=== PATIENT | male | born 1965 | race Caucasian/White ===

== ENCOUNTER → 2019-08-24 10:52 | Outpatient (BNVA) | payer OTHER, SELFPAY | PROVIDERS: Family Provider Nurse Practitioner Family; PCP Nurse Practitioner Family; Visit Provider Registered Nurse | DX: E11.9 Type 2 diabetes mellitus without complications (principal) | CPT/HCPCS: 80053; 83036; 85025 ==

== ENCOUNTER 2019-12-24 19:06 | Emergency (ER) | payer BC, SELFPAY ==
[2019-12-24 19:12] VITALS: PULSE 109; RESP 20; TEMP 36.8; O2SAT 96; BMI 39.5
--- NOTE | 2019-12-24 19:18 | CTR_ITS ---
PROCEDURE INFORMATION: Exam: CT Abdomen And Pelvis With Contrast Exam date and time: 12/24/2019 8:26 PM Age: 54 years old Clinical indication: Abdominal pain; Localized; Left lower quadrant (llq); Patient HX: HX diverticulitis; Additional info: Abdominal pain, fever TECHNIQUE: Imaging protocol: Computed tomography of the abdomen and pelvis with intravenous contrast. Radiation optimization: All CT scans at this facility use at least one of these dose optimization techniques: automated exposure control; mA and/or kV adjustment per patient size (includes targeted exams where dose is matched to clinical indication); or iterative reconstruction. Contrast material: OMNI 300; Contrast volume: 95 ml; Contrast route: INTRAVENOUS (IV); COMPARISON: CT abdomen pelvis w con* [id number] 09/15/2014 3:15 AM RADIATION DOSE METRICS: Total DLP (mGy-cm): 1838.72 FINDINGS: Lungs: There is subpleural atelectasis of the dependent portions of the lungs. Unchanged 5 mm ground-glass nodule right middle lobe image 2. This has been stable dating back to 2014. Mediastinal space: A small hiatal hernia is present. Liver: There is a diffuse decrease in hepatic parenchymal density, consistent with fatty infiltration. Multiple liver hypodensities are noted. Some are too small to characterize but there is a 1.5 cm fluid density cyst in the right lobe of the liver image 26. Gallbladder and bile ducts: There is a small amount of sludge in the gallbladder. No cholecystitis. There is no common bile duct dilation. Pancreas: Normal. No ductal dilation. Spleen: Normal. No splenomegaly. Adrenals: Normal. No mass. Kidneys and ureters: There is no evidence of hydronephrosis. There is no evidence of renal calcifications. Stomach and bowel: Extensive diverticulosis is present in the distal colon. There is a segment of sigmoid colonic wall thickening consistent with moderate acute colitis/diverticulitis. As an underlying colonic malignancy cannot be excluded, a follow-up examination after a course of treatment is recommended if clinically warranted. There is sigmoid pericolonic inflammatory stranding. No additional bowel thickening or inflammatory changes. Appendix: A normal appendix is identified. Intraperitoneal space: No abscess or free air. Vasculature: Unremarkable.No abdominal aortic aneurysm. Lymph nodes: Unremarkable.No enlarged lymph nodes. Bladder: There is nonspecific bladder wall thickening. This may be related to incomplete distention. Reproductive: The prostate demonstrates mild nonspecific enlargement. The seminal vesicles are normal. Bones/joints: There are moderate to severe degenerative changes in the lower lumbar spine and hips. No acute bony abnormality. Soft tissues: There are small bilateral fat filled inguinal hernias. CT/CT abdomen pelvis w con* [id number] IMPRESSION: 1. There is a segment of sigmoid colonic wall thickening consistent with moderate acute colitis/diverticulitis. As an underlying colonic malignancy cannot be excluded, a follow-up examination after a course of treatment is recommended if clinically warranted. No abscess or free air. 2. Mild fatty infiltration liver with liver cysts. Diffuse diverticulosis. 3. Unchanged 5 mm ground-glass nodule right middle lobe dating back to August 2014. No follow-up is necessary. Radiation Dose CTDIVOL = (mGy): DLP = 1838.72 (mGy-cm)
--- NOTE | 2019-12-24 19:41 | ED_ITS ---
HPI - Abdominal Pain General: Chief Complaint: Abdominal Pain Stated Complaint: abd pain Time Seen by Provider: 12/24/19 19:14 History of Present Illness: HPI narrative: This patient is a 54-year-old male presenting with left lower quadrant abdominal pain. Pain started this morning and has been gradually increasing throughout the day. He is in obvious distress on exam. He said he had diverticulitis in the past and this feels similar. He says the pain is somewhat radiating to his left testicle. He denies any urinary symptoms. He also denies constipation, diarrhea, nausea, vomiting. He took some Advil early in the morning but has not taken anything else since then. He denies any abdominal surgeries. His last bout of diverticulitis was several years ago. MD elicited complaint: abdominal pain Pertinent past history: diverticulitis Onset (ago): hour(s) (12) Pain Consistency: constant Location: LLQ and L flank Severity: severe Quality: cramping, aching and fullness Radiation: other (Left testicle) Associated Symptoms: Denies chills and fever(s) Review of Systems General: Reports: 10 or more systems reviewed and unremarkable except in HPI and below Const: Denies: fever(s), chills, fatigue or malaise Eyes: Denies: change in vision ENMT: Denies: odynophagia Card: Denies: chest pain or swelling of feet/ankles Resp: Denies: dyspnea, productive cough or non-productive cough GI: Reports: abdominal pain : Denies: flank pain Musc: Denies: neck pain or back pain Skin/Breast: Denies: rash Neuro: Denies: headache(s), numbness in extremities or weakness in extremities Helio/Lymph: Denies: easy bruising or easy bleeding [facility] ED PFSH: Medical History Type 2 diabetes mellitus with hemoglobin A1c goal of less than 7.0% Social History Smoking and tobacco status: former smoker Physical Exam Const: COMMON NORMALS: patient oriented x3, no limitations and alert GENERAL APPEARANCE: cooperative and in distress HENMT: HEAD & SCALP: normal to inspection FACE & SINUS: normal facial exam Eye: GENERAL EYE: appearance normal, both eyes and all related structures Neck/C-Spine: COMMON NORMALS: supple, no meningeal signs and no JVD Chest: COMMONS NORMALS: normal inspection of the chest Resp: COMMON NORMALS: normal respiratory effort, No use of accessory muscles and clear to auscultation bilaterally AUSCULTATION: clear to auscultation bilaterally Cardio: COMMON NORMALS: no JVD, regular rate, regular rhythm and No murmurs present (Cardio) RATE: regular rate RHYTHM: regular rhythm GI: AUSCULTATION: Yes Hypoactive bowel sounds present PALPATION: Yes Firmness to palpation present (GI) and Yes Tenderness to palpation present (GI) (Markedly tender diffusely, worst in the left lower quadrant with some guarding.) Back/Pelvis: COMMON NORMALS: thoracic and lumbar spine normal to inspection Extremity: COMMON NORMALS: normal to inspection Neuro: COMMON NORMALS: patient oriented x3, moves all extremities, no focal motor deficits and no sensory deficits noted SENSORIUM/ORIENTATION: Yes alert MENINGEAL SIGNS: Yes no meningeal signs Psych: COMMON NORMALS: mental status grossly normal, cooperative and normal affect Skin: COMMON NORMALS: no rashes or lesions noted and turgor normal GENERAL SKIN EXAM: no rashes or lesions noted and turgor normal Course ED course: Patient with previous history of diverticulitis. His symptoms are consistent with diverticulitis however he does have some radiation to his testicle raising the question of possibly a kidney stone. CT was done to make sure that we are really dealing with diverticulitis as well as to rule out an abscess or perforation. White count was 10.9. Patient felt drastically better after some morphine and Toradol. We discussed options of admission versus going home. I feel like he is okay to go home and he would prefer to do that. We will send him home with Cipro and Flagyl which have also get a give IV here before he leaves. Also send him home with some hydrocodone, Naprosyn for only a few days and some Zofran. We discussed return precautions and follow-up. Vital Signs: Vital signs: Vital Signs Temperature 99.1 F 12/24/19 21:07 Pulse Rate 82 12/24/19 21:07 Respiratory Rate 18 12/24/19 21:07 Blood Pressure 124/63 12/24/19 21:07 Pulse Oximetry 96 12/24/19 19:12 MDM - Abdominal Pain Lab Data: Labs: Lab Results 12/24/19 12/24/19 12/24/19 Range/Units 19:30 19:52 19:52 WBC 10.9 H (4.0-10.0) 10^3/ uL RBC 5.29 (4.1-5.3) 10^6/u L Hgb 14.7 (11.7-16.6) g/dL Hct 46.0 (42.0-52.0) % MCV 87.0 (80-94) fL MCH 27.8 L (28.0-34.0) pg MCHC 32.0 (30.0-36.0) g/dL RDW 13.2 (12.1-15.1) % Plt Count 232 (130-400) 10^3/c mm MPV 9.7 (7.4-10.4) fL Neut % (Auto) 73.3 % Lymph % (Auto) 16.1 % [place] % (Auto) 9.6 % Eos % (Auto) 0.4 % Baso % (Auto) 0.3 % Neut # (Auto) 8.0 H (1.8-7.7) 10^3/u L Lymph # (Auto) 1.8 (0.8-4.8) 10^3/u L [place] # (Auto) 1.0 H (0.2-0.9) 10^3/u L Eos # (Auto) 0.0 (0.0-0.8) 10^3/u L Baso # (Auto) 0.0 (0.0-0.1) 10^3/u L Nucleated RBC % (a uto) 0 % Nucleated RBCs # 0.0 /100WBC Sodium 138 (136-145) mmol/L Potassium 4.3 (3.5-5.1) mmol/L Chloride 102 (98-107) mmol/L Carbon Dioxide 24 (22-29) mmol/L Anion Gap 16.3 (5-19) BUN 17 (6-20) mg/dL Creatinine 0.9 (0.7-1.2) mg/dL GFR Calculation 87.3 L (90-130) mL/min Glucose 148 H (65-115) mg/dL Calculated Osmolal ity 285 (285-295) mOsm/k g Calcium 9.6 (8.5-10.5) mg/dL Total Bilirubin 0.9 (0.15-1.2) mg/dL AST 14 (0-40) U/L ALT 14 (0-41) U/L Alkaline Phosphata se 41 (40-130) IU/L Total Protein 7.6 (6.6-8.7) g/dL Albumin 4.5 (3.5-5.2) g/dL Globulin 3.1 (1.3-4.6) g/dL Urine Color Yellow (Yellow) Urine Appearance Clear (CLEAR) Urine pH 5 (5-7) Ur Specific Gravit y 1.025 (1.005-1.030) Urine Protein Neg (Negative) Urine Glucose (UA) 1+ (Normal) Urine Ketones Negative (Negative) Urine Blood Neg (Negative) Urine Nitrate Negative (Negative) Urine Bilirubin Neg (NEGATIVE) Urine Urobilinogen Neg (Negative) mg/dL Ur Leukocyte Iesha ase Negative (Negative) Discharge Plan Discharge Patient Disposition: Home, Self-Care Clinical Impression: Diverticulitis Condition: Stable Prescriptions: New ciprofloxacin HCl 500 mg tablet 500 mg PO Q8H Qty: 30 RF: 0 metronidazole 500 mg tablet 500 mg PO TID Qty: 30 RF: 0 hydrocodone-acetaminophen 5-325 mg tablet 1 tab PO Q6H PRN (Reason: pain) Qty: 14 RF: 0 naproxen 500 mg tablet 500 mg PO Q12H PRN (Reason: pain) Qty: 7 RF: 0 ondansetron HCl 4 mg tablet 4 mg PO Q6H PRN (Reason: nausea and vomiting) Qty: 10 RF: 0 No Action lisinopril 10 mg tablet 10 mg PO DAILY Qty: 90 RF: 1 metformin 500 mg tablet 500 mg PO BID Qty: 180 RF: 1 rosuvastatin 10 mg tablet 10 mg PO DAILY Qty: 90 RF: 0 fenofibrate 160 mg tablet 160 mg PO DAILY Qty: 90 RF: 1 Advil 200 mg Tablet 200 mg PO Q6H PRN (Reason: Pain) RF: 0 Discharge Orders: Discharge Order (Routine); Ordered 12/24/19 Ordered By: Janette Morales Referrals: Demetrio Langston, [facility] [employer] [Primary Care Provider] - Discharge Diet: Advance as tolerated and Clear Liquid Discharge Activity: Resume usual activity Patient Instructions: Diverticulitis (ED) Activity Restrictions/Additional Instructions: Return to the emergency department if increasing pain, fever, vomiting. Take the antibiotics exactly as prescribed. Use the pain medication as needed. We suggest taking it fairly regularly for the next 1 to 2 days or until symptoms start to improve. Pain medication can cause constipation so consider a stool softener. Follow-up with your doctor in about a week. Coding Level of Care Code ED Microbiological Lab Technician for [facility] Exam Comprehensive
[2019-12-24 19:56] VITALS: RESP 18
[2019-12-24] MEDS: morphine 4 mg/mL SDV 1 mL IVP (19:56)
[2019-12-24] MEDS: ondansetron 2 mg/ML SDV 2 mL 4 MG IVP (19:59)
[2019-12-24] MEDS: ketorolac 30 mg/mL INJ 15 MG IVP (20:03)
[2019-12-24 20:05] LABS: Add Urine Microscopic? NO
[2019-12-24 20:06] LABS: Basophils % 0.3 %; Eosinophils % 0.4 %; Hemoglobin 14.7 g/dL (11.7-16.6); Lymphocytes # 1.8 10^3/uL (0.8-4.8); Lymphocytes % 16.1 %; Mean Corpuscular Hemoglobin 27.8 pg (28.0-34.0); Mean Platelet Volume 9.7 fL (7.4-10.4); Monocytes % 9.6 %; Neutrophils % 73.3 %; Nucleated Red Blood Cells % 0 %; Platelet Count 232 10^3/cmm (130-400); Red Blood Count 5.29 10^6/uL (4.1-5.3); Red Cell Distribution Width 13.2 % (12.1-15.1); White Blood Count 10.9 10^3/uL (4.0-10.0)
[2019-12-24 20:17] LABS: Bilirubin Urine Neg (NEGATIVE); Blood Urine Neg (Negative); Glucose Urine UA 1+ (Normal); Ketones Urine Negative (Negative); Leukocyte Esterase Urine Negative (Negative); Nitrate Urine Negative (Negative); Protein Urine Neg (Negative); Specific Gravity, Urine 1.025 (1.005-1.030); Urine Appearance Clear (CLEAR); Urine Color Yellow (Yellow); Urobilinogen Urine Neg (Negative); pH Urine 5 (5-7)
[2019-12-24 20:21] LABS: Alanine Aminotransferase 14 U/L (0-41); Albumin Level 4.5 g/dL (3.5-5.2); Alkaline Phosphatase 41 IU/L (40-130); Anion Gap 16.3 (5-19); Aspartate Amino Transferase 14 U/L (0-40); Blood Urea Nitrogen 17 mg/dL (6-20); Calcium 9.6 mg/dL (8.5-10.5); Carbon Dioxide 24 mmol/L (22-29); Chloride 102 mmol/L (98-107); Globulin 3.1 g/dL (1.3-4.6); Glomerular Filtration Rate 87.3 mL/min (90-130); Glucose 148 mg/dL (65-115); Osmolality Calculated 285 mOsm/kg (285-295); Potassium 4.3 mmol/L (3.5-5.1); Sodium 138 mmol/L (136-145); Total Bilirubin 0.9 mg/dL (0.15-1.2); Total Protein 7.6 g/dL (6.6-8.7)
[2019-12-24] MEDS: iohexol 300 mg/mL 100 mL Btl IV (20:34)
[2019-12-24 21:07] VITALS: BP 124/63; PULSE 82; RESP 18; TEMP 37.3
[2019-12-24] MEDS: ciprofloxacin 400 MG/200 ML PREMIX 200 MG IV (21:24)
[2019-12-24] MEDS: HYDROcodone-acetaminophen 5-325 mg Tablet 2 TAB PO (22:11)
[2019-12-24] MEDS: metroNIDAZOLE IV 500 MG/100 ML PREMIX 100 MG IV (22:33)
[2019-12-24 23:50] VITALS: BP 125/81; PULSE 82; RESP 18; TEMP 36.2
== END 2019-12-24 23:56 | disposition home or self-care (01) ==
PROVIDERS: Emergency Provider Emergency Medicine; PCP Registered Nurse
DX: K57.92 Diverticulitis of intestine, part unspecified, without perforation or abscess without bleeding (principal); E11.9 Type 2 diabetes mellitus without complications; Z87.891 Personal history of nicotine dependence
CPT/HCPCS: 12345; 36415; 74177; 80053; 81003; 85025; 96365; 96375; 99283; J0744; J1885; J2270; J2405; Q9967; S0030

== ENCOUNTER → 2020-10-28 11:22 | Outpatient (BNVA) | payer OTHER, SELFPAY | PROVIDERS: PCP Registered Nurse; Visit Provider Registered Nurse | DX: E11.9 Type 2 diabetes mellitus without complications (principal); I10 Essential (primary) hypertension; E78.5 Hyperlipidemia, unspecified; E11.69 Type 2 diabetes mellitus with other specified complication; E66.01 Morbid (severe) obesity due to excess calories; Z68.41 Body mass index [BMI] 40.0-44.9, adult | CPT/HCPCS: 80053; 80061; 83036; 85025 ==

== ENCOUNTER → 2020-12-18 10:03 | Outpatient (BNVA) | payer OTHER, SELFPAY | PROVIDERS: PCP Registered Nurse; Referring Provider Family Medicine; Visit Provider Urology | DX: N48.1 Balanitis (principal); N47.1 Phimosis; E66.01 Morbid (severe) obesity due to excess calories; E11.9 Type 2 diabetes mellitus without complications; Z68.41 Body mass index [BMI] 40.0-44.9, adult | CPT/HCPCS: 81003 ==

== ENCOUNTER → 2021-02-27 11:27 | Outpatient (BNVA) | payer OTHER, SELFPAY | PROVIDERS: PCP Registered Nurse; Visit Provider Registered Nurse | DX: E11.69 Type 2 diabetes mellitus with other specified complication (principal); E78.5 Hyperlipidemia, unspecified; E66.01 Morbid (severe) obesity due to excess calories; Z68.41 Body mass index [BMI] 40.0-44.9, adult | CPT/HCPCS: 80053; 83036 ==

== ENCOUNTER → 2021-03-13 12:57 | Outpatient (BNVA) | payer OTHER, SELFPAY | PROVIDERS: PCP Registered Nurse; Visit Provider Urology | DX: N47.1 Phimosis (principal) | CPT/HCPCS: 88304 ==

== ENCOUNTER 2021-06-12 08:05 | Outpatient (CLI) | payer OTHER, SELFPAY ==
--- NOTE | 2021-06-12 08:00 | MR_ITS ---
WS: [id number] MRI LEFT KNEE HISTORY: M25.562 - Pain in left knee COMPARISON: None available. Anterior cruciate ligament: Abnormal ACL. Multifocal areas of abnormal signal and thinning of the lig ament. There are still some fibers that extends along the normal course of the ACL but partial tears are evident along the proximal and distal ligament. Posterior cruciate ligament: Intact. Medial collateral ligament: MCL is being displaced from the joint line by osteophytes and extruded me niscus. Posterior lateral corner structures: Intact. Medial menisci: Abnormal shape and signal within the posterior meniscus. Complex tear with blunting a nd loss of the free edge. Intrasubstance degeneration within the meniscal root. The anterior horn dem onstrates subluxation from the joint with abnormal free edge. Lateral meniscus: Fraying along the articular surfaces but no tears. Extensor mechanism: Distal quadriceps tendon and patellar tendons are intact. Fluid and soft tissue: Moderate-sized suprapatellar joint effusion. Fluid extends into the infrapatel lar fat pad and surrounds the condyles. Moderate-sized lobulated Hidalgo's cyst. Cyst extends over a le ngth of 6.8 cm. Osseous and articular structures: Patellofemoral compartment: Hypertrophic osteophytes from the medial and lateral patella. The cartila ge is intact. No displacement. Medial compartment: Moderate narrowing of the medial compartment with complete loss of cartilage. Cor tical irregularity along the surfaces of the femoral condyle and tibial plateau with osteophytes exte nding towards the MCL. Subchondral cystic changes and edema along the nonweightbearing surface manager sterile iorly of the femoral condyle. Lateral compartment: Mild narrowing of the lateral compartment. Moderate fraying and loss of cartilag e but to a lesser extent within the medial compartment. No fracture. MR/MR knee LT wo con* [id number] IMPRESSION: 1. Moderate to severe medial compartment internal derangement with loss of car tilage, near bone upon bone, osteophytes and meniscal tears /extrusion. 2. Complex tear in the posterior medial meniscus. Additional tears involving t he free edges of the anterior and posterior horns of the medial meniscus with p artial extrusion of the meniscus from the joint. 3. Thinned ACL with partial tears. 4. Moderate-sized joint effusion and Hidalgo's cyst. 5. Mild internal derangement lateral compartment with fraying and thinning of the cartilage.
== END 2021-06-12 08:06 | disposition home or self-care (01) ==
LOC: RADSHAW 08:11
PROVIDERS: PCP Registered Nurse; Visit Provider Registered Nurse
DX: M25.462 Effusion, left knee (principal); M71.22 Synovial cyst of popliteal space [Baker], left knee; M23.92 Unspecified internal derangement of left knee; S83.232A Complex tear of medial meniscus, current injury, left knee, initial encounter; X58.XXXA Exposure to other specified factors, initial encounter
CPT/HCPCS: 73721

== ENCOUNTER → 2021-10-09 09:34 | Outpatient (BNVA) | payer OTHER, SELFPAY | PROVIDERS: PCP Registered Nurse; Visit Provider Registered Nurse | DX: E11.9 Type 2 diabetes mellitus without complications (principal); Z12.5 Encounter for screening for malignant neoplasm of prostate | CPT/HCPCS: 80053; 80061; 83036; 85025; G0103 ==

== ENCOUNTER → 2022-04-02 10:44 | Outpatient (BNVA) | payer OTHER, SELFPAY | PROVIDERS: PCP Registered Nurse; Visit Provider Registered Nurse | DX: E11.69 Type 2 diabetes mellitus with other specified complication (principal); E78.5 Hyperlipidemia, unspecified; I10 Essential (primary) hypertension | CPT/HCPCS: 80053; 83036 ==

== ENCOUNTER → 2022-11-09 09:08 | Outpatient (BNVA) | payer OTHER, SELFPAY | PROVIDERS: PCP Registered Nurse; Visit Provider Registered Nurse | DX: E11.9 Type 2 diabetes mellitus without complications (principal); I10 Essential (primary) hypertension; E78.5 Hyperlipidemia, unspecified | CPT/HCPCS: 80053; 80061; 83036; 83721; 85025 ==

== ENCOUNTER 2023-01-13 09:14 | Inpatient (IN) | payer OTHER, SELFPAY ==
[2023-01-13] VITALS (7 sets, daily range): BP systolic 114–154; BP diastolic 70–83; PULSE 70–107; RESP 15–18; TEMP 36.7–36.9; O2SAT 93–97
--- NOTE | 2023-01-13 10:00 | CT_ITS ---
WS: [id number] CT ABDOMEN AND PELVIS WITH CONTRAST HISTORY: moderate to severe Periumbilical tenderness TECHNIQUE: Imaging performed of the abdomen and pelvis with IV contrast. Single phase imaging of the abdomen. Coronal and sagittal reformats are submitted. All CT scans at [facility] use at [address] one of these dose optimization techniques: automated exposure control; mA and/or kV adjustment per patient size (includes targeted exams where dose is matched to clinical indication); or iterative re construction. IV CONTRAST: Omnipaque 350; 100 mL IV. Oral contrast: No DLP: 1083.15 mGy.cm COMPARISON: 12/24/2019 Lower thorax: Dependent changes at the lung bases due to poor inspiration. Heart is normal size. Smal l hiatal hernia. Liver/biliary system: Mild hepatic steatosis and hepatomegaly. Several small hepatic cysts are identi fied within the RIGHT lobe. The largest measures 13 mm. No bile duct dilatation. Normal portal vein. Gallbladder: Normal. No gallstones or wall thickening. No pericholecystic fluid. Pancreas: Moderate amount of inflammation surrounding the pancreatic tail. The inflammation extends t o the greater curvature the stomach and along the LEFT paracolic gutter to the descending colon. Spleen: Normal size spleen. No mass or infarct. Adrenal glands: Normal. Right kidney: Normal. Left kidney: Normal. Aorta: Normal. Numerous splenic varicosities are noted within the upper LEFT abdomen. Lymphadenopathy: Numerous small, subcentimeter central mesenteric and celiac axis lymph nodes. These lymph nodes are similar to the prior study from 2019. No significant retroperitoneal adenopathy. Free fluid: Mesenteric edema and stranding along LEFT paracolic gutter fluid. GI tract: Normally distended stomach. No small bowel obstruction. The appendix is normal. Numerous di verticula beginning in the descending colon through the sigmoid. There are focal diverticulum near th e splenic flexure and proximal duodenum. There is inflammation and stranding in this location. There is a diverticulum which is appears inflamed. There is also an area of colonic stricture. The inflamma tion extends to encase the pancreatic tail and fundal portion of the stomach. Moderate sigmoid divert icular burden without inflammation. No free air. Abdominal wall: Fat containing umbilical hernia. Pelvis: No free fluid or adenopathy within the pelvis. Bones: Advanced degenerative disc space narrowing at L4-5. L3 vertebral body hemangioma. Mild degener ative joint space narrowing of the hips. CT/CT abdomen pelvis w con* [id number] IMPRESSION: 1. Acute inflammatory process centered in the LEFT abdomen with involvement of the splenic flexure and proximal descending colon, pancreatic tail and fundus of the stomach. Favor these changes are originating from acute diverticulitis. Focal inflamed diverticula involving the descending colon and also an area of s tricture which will need to be further evaluated for possible underlying neopla sm. Recommend colonoscopy after acute inflammation resolves. There is no absces s. 2. Additional sigmoid diverticulosis without acute diverticulitis. 3. No renal obstruction. 4. Normal appendix.
--- NOTE | 2023-01-13 10:00 | XR_ITS ---
WS: [id number] Exam: XR chest 1V portable [id number] Date/Time of Exam: 01/13/2023 10:00 AM Reason For Exam: epigastric pain No priors. The lungs are clear and fully expanded. Normal cardiomediastinal silhouette. Mild plaque atelectasis in the left base. Spondylosis of the thoracic spine. Moderate DJD of both shoulders. XR/XR chest 1V portable [id number] IMPRESSION: 1. No acute cardiopulmonary finding.
--- NOTE | 2023-01-13 10:00 | ECG_ITS ---
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 Measurements Intervals [place] Rate: 85 P: 61 OR: 167 QRS: 111 QRSD: 106 T: 35 QT: 342 QTc: 408 Interpretive Statements SINUS RHYTHM WITH MARKED RHYTHM IRREGULARITY, POSSIBLE NON-CONDUCTED PAC, SA BLOCK INDETERMINATE AXIS CRITICAL TEST RESULT Compared to ECG 01/13/2023 10:19:14 No significant changes Electronically Signed On 01-13-2023 22:43:49 CDT by Loida Osei M.D. [email or web address]
--- NOTE | 2023-01-13 10:02 | W.ED.ABDPA2 ---
Documented by User: HENRRY Yen 01/13/23 16:44 HPI - Abdominal Pain General: Chief Complaint: Abdominal Pain Stated Complaint: abd pain Time Seen by Provider: 01/13/23 09:28 History of Present Illness: Patient is a 57-year-old male comes to the ED with abdominal pain. Symptoms started at 7 PM last night. Patient says he just finished eating dinner approximately an hour before symptoms started. He was sitting on his couch when pain started. He says the pain was located in his epigastric region and radiates down towards his bellybutton. He rates the pain currently an 8 out of 10. He states the pain feels like somebody is punching him in the stomach. He has never had abdominal pain like this before. Patient tried taking some Tums last night and it did not help. He was unable to sleep due to the pain. He feels like if he burps will help some of his pain. Patient denies being nauseous or diaphoretic upon onset of pain. Denies any chest pain, fevers, nausea/vomiting, bladder or bowel symptoms. Patient has a history of diverticulitis. Associated Symptoms: Denies chills, constipation, diarrhea, dysuria, fever(s), hematochezia, hematuria, nausea and vomiting Review of Systems Const: Denies: fever(s), chills or fatigue Eyes: Denies: change in vision or eye discomfort ENMT: Denies: throat pain, odynophagia, nasal discharge or nasal congestion Card: Denies: chest pain, palpitations, edema, swelling of feet/ankles, dyspnea on exertion or orthopnea Resp: Denies: dyspnea, productive cough or non-productive cough GI: Reports: abdominal pain; Denies: nausea, vomiting, diarrhea, constipation or hematochezia : Denies: flank pain, difficulty urinating, dysuria or hematuria Musc: Denies: neck pain, back pain or extremity swelling Skin/Breast: Denies: rash or new lesions Neuro: Denies: headache(s), numbness in extremities or weakness in extremities PFSH ED PFSH: Medical History Hyperlipidemia associated with type 2 diabetes mellitus Hypertension Morbid obesity with BMI of 40.0-44.9, adult Type 2 diabetes mellitus with hemoglobin A1c goal of less than 7.0% Family History Father , AT AGE 57 GUNSHOT CAD (coronary artery disease) Cancer Mother , AT AGE 72 CONGESTIVE HEART FAILRE CAD (coronary artery disease) Other Diabetes Social History Smoking and tobacco status: current every day smoker cigars and smokeless tobacco Alcohol intake: never Substance/Drug Use: never Adopted: No Caregiver/support person: No Lives independently: No Household members: spouse Marital status: Current occupational status: employed Sexually active: Yes Do you think of yourself as: Straight/Heterosexual Current gender identity: Male Physical Exam Const: COMMON NORMALS: patient oriented x3 and alert HENMT: COMMON NORMALS: normocephalic HEAD & SCALP: normocephalic MOUTH: Normal oral and palatal mucosa present THROAT: posterior oropharynx normal and uvula midline Neck/C-Spine: COMMON NORMALS: supple GENERAL: Yes normal visual inspection Resp: COMMON NORMALS: normal respiratory effort, No retractions, No use of accessory muscles and clear to auscultation bilaterally AUSCULTATION: clear to auscultation bilaterally Cardio: COMMON NORMALS: regular rate, regular rhythm, S1 normal heart sound present, S2 normal heart sound present, No gallops present (Cardio), No clicks present (Cardio), No murmurs present (Cardio) and Peripheral pulses 2+ throughout RATE: regular rate RHYTHM: regular rhythm HEART SOUNDS: S1 normal heart sound present and S2 normal heart sound present PERIPHERAL PULSES: Peripheral pulses 2+ throughout GI: COMMON NORMALS: Normal to inspection, nondistended, normoactive bowel sounds present, Soft to palpation and no masses PALPATION: Yes Soft to palpation and Yes Tenderness to palpation present (GI) (Moderate to severe tenderness over epigastric and periumbilical region) : COMMON NORMALS: Yes no CVA tenderness BLADDER/KIDNEY EXAM: Yes no CVA tenderness Back/Pelvis: COMMON NORMALS: no CVA tenderness Extremity: COMMON NORMALS: normal to inspection Neuro: COMMON NORMALS: patient oriented x3 SENSORIUM/ORIENTATION: Yes alert GAIT: Yes Normal gait present Skin: GENERAL SKIN EXAM: dry skin Course Vital Signs: Vital signs: Vital Signs Temperature 98.2 F 01/13/23 16:00 Pulse Rate 98 01/13/23 16:00 Respiratory Rate 15 01/13/23 16:00 Blood Pressure 114/70 01/13/23 16:00 Pulse Oximetry 93 01/13/23 16:00 Oxygen Delivery Me thod Room Air 01/13/23 16:00 MDM - Abdominal Pain Medical Decision Making Patient is a 57-year-old male comes to the ED with abdominal pain. Abdominal pain started yesterday evening at about 7:00. He says he ate some dinner and about an hour or 2 later he started having the pain. Pain was rated an 8 out of 10. Denies any nausea or vomiting or fevers. Vitals are stable. Patient appears a little bit uncomfortable due to abdominal pain. He had moderate to severe tenderness to light palpation of upper abdomen bilaterally. CBC is unremarkable. Lipase 375 and total bili was 1.6. Rest of labs were unremarkable. CT of abdomen pelvis shows acute diverticulitis that is causing some inflammation around the pancreas. Patient was given IV pain meds and nausea meds. His pain was controlled but then we did a p.o. fluid challenge and after that his abdominal pain worsened again. I talked with Dr. Doherty about patient case and he thought patient needed to be admitted. I contacted Dr. Campos told about patient case. He agreed to have patient admitted to the hospital. Chart reviewed and patient discussed with midlevel. Agree with assessment and plan. Lab Data I reviewed the patient's lab results. 01/13/23 09:48 01/13/23 09:48 Labs/Radiology: Radiology Impressions Abdomen/Pelvis CT 01/13/23 10:00 IMPRESSION: 1. Acute inflammatory process centered in the LEFT abdomen with involvement of the splenic flexure and proximal descending colon, pancreatic tail and fundus of the stomach. Favor these changes are originating from acute diverticulitis. Focal inflamed diverticula involving the descending colon and also an area of stricture which will need to be further evaluated for possible underlying neoplasm. Recommend colonoscopy after acute inflammation resolves. There is no abscess. 2. Additional sigmoid diverticulosis without acute diverticulitis. 3. No renal obstruction. 4. Normal appendix. Chest X-Ray 01/13/23 10:00 IMPRESSION: 1. No acute cardiopulmonary finding. Laboratory Results WBC 9.5 10^3/uL (4.0-10.0) 01/13/23 09:48 RBC 5.97 10^6/uL (4.1-5.3) H 01/13/23 09:48 Hgb 16.3 g/dL (11.7-16.6) 01/13/23 09:48 Hct 50.6 % (42.0-52.0) 01/13/23 09:48 MCV 84.8 fl (80-94) 01/13/23 09:48 MCH 27.3 pg (28.0-34.0) L 01/13/23 09:48 MCHC 32.2 g/dL (30.0-36.0) 01/13/23 09:48 RDW 13.8 % (12.1-15.1) 01/13/23 09:48 Plt Count 202 10^3/cmm (130-400) 01/13/23 09:48 MPV 9.5 fL (7.4-10.4) 01/13/23 09:48 Neut % (Auto) 85.6 % 01/13/23 09:48 Lymph % (Auto) 8.4 % 01/13/23 09:48 [place] % (Auto) 5.5 % 01/13/23 09:48 Eos % (Auto) 0.1 % 01/13/23 09:48 Baso % (Auto) 0.1 % 01/13/23 09:48 Neut # (Auto) 8.16 10^3/uL (1.8-7.7) H 01/13/23 09:48 Lymph # (Auto) 0.8 10^3/uL (0.8-4.8) 01/13/23 09:48 [place] # (Auto) 0.5 10^3/uL (0.2-0.9) 01/13/23 09:48 Eos # (Auto) 0.0 10^3/uL (0.0-0.8) 01/13/23 09:48 Baso # (Auto) 0.0 10^3/uL (0.0-0.1) 01/13/23 09:48 Nucleated RBC % (auto) 0 % 01/13/23 09:48 Nucleated RBCs # 0.0 /100WBC 01/13/23 09:48 Sodium 140 mmol/L (136-145) 01/13/23 09:48 Potassium 4.3 mmol/L (3.5-5.1) 01/13/23 09:48 Chloride 101 mmol/L (98-107) 01/13/23 09:48 Carbon Dioxide 27 mmol/L (22-29) 01/13/23 09:48 Anion Gap 16.3 (5-19) 01/13/23 09:48 BUN 14 mg/dL (6-20) 01/13/23 09:48 Creatinine 0.7 mg/dL (0.7-1.2) 01/13/23 09:48 GFR Calculation 115.4 mL/min (90-130) 01/13/23 09:48 Glucose 167 mg/dL (65-115) H 01/13/23 09:48 Calculated Osmolality 294 mOsm/kg (285-295) 01/13/23 09:48 Calcium 10.7 mg/dL (8.5-10.5) H 01/13/23 09:48 Total Bilirubin 1.6 mg/dL (0.15-1.2) H 01/13/23 09:48 AST 17 U/L (0-40) 01/13/23 09:48 ALT 24 U/L (0-41) 01/13/23 09:48 Alkaline Phosphatase 37 U/L (40-130) L 01/13/23 09:48 Troponin T Baseline 6 ng/L (0-15) 01/13/23 09:48 Troponin T 120 Minute 7.29 ng/L (0-15) 01/13/23 12:14 Delta Troponin T 1.29 ABS# (0-10) 01/13/23 12:14 Total Protein 7.5 g/dL (6.6-8.7) 01/13/23 09:48 Albumin 4.6 g/dL (3.5-5.2) 01/13/23 09:48 Globulin 2.9 g/dL (1.3-4.6) 01/13/23 09:48 Lipase 375 U/L (13-60) H 01/13/23 09:48 Urine Color Yellow (Yellow) 01/13/23 10:15 Urine Appearance Clear (CLEAR) 01/13/23 10:15 Urine pH 5 (5-7) 01/13/23 10:15 Ur Specific Otis 1.025 (1.005-1.030) 01/13/23 10:15 Urine Protein Neg (Negative) 01/13/23 10:15 Urine Glucose (UA) 4+ (Normal) H 01/13/23 10:15 Urine Ketones Negative (Negative) 01/13/23 10:15 Urine Blood Neg (Negative) 01/13/23 10:15 Urine Nitrate Negative (Negative) 01/13/23 10:15 Urine Bilirubin Neg (Negative) 01/13/23 10:15 Urine Urobilinogen Norm mg/dL (Negative) 01/13/23 10:15 Ur Leukocyte Esterase Negative (Negative) 01/13/23 10:15 Discharge Plan Discharge Patient Disposition: Admitted As Inpatient Admit Provider: Eitan Campos Clinical Impression: Acute diverticulitis, Hypertension, Morbid obesity with BMI of 40.0-44.9, adult, Diabetes, Diverticula of colon Condition: Stable Coding Level of Care Code ED Negative Restorer for Chg Fwd Documented by User: Darron Damon DO 01/13/23 15:20 HPI - Abdominal Pain General: Chief Complaint: Abdominal Pain Stated Complaint: abd pain Time Seen by Provider: 01/13/23 09:28 PFSH ED PFSH: Medical History Hyperlipidemia associated with type 2 diabetes mellitus Hypertension Morbid obesity with BMI of 40.0-44.9, adult Type 2 diabetes mellitus with hemoglobin A1c goal of less than 7.0% Family History Father , AT AGE 57 GUNSHOT CAD (coronary artery disease) Cancer Mother , AT AGE 72 CONGESTIVE HEART FAILRE CAD (coronary artery disease) Other Diabetes Social History Smoking and tobacco status: current every day smoker cigars and smokeless tobacco Alcohol intake: never Substance/Drug Use: never Adopted: No Caregiver/support person: No Lives independently: No Household members: spouse Marital status: Current occupational status: employed Sexually active: Yes Do you think of yourself as: Straight/Heterosexual Current gender identity: Male Course Vital Signs: Vital signs: Vital Signs Temperature 98.2 F 01/13/23 16:00 Pulse Rate 98 01/13/23 16:00 Respiratory Rate 15 01/13/23 16:00 Blood Pressure 114/70 01/13/23 16:00 Pulse Oximetry 93 01/13/23 16:00 Oxygen Delivery Me thod Room Air 01/13/23 16:00 MDM - Abdominal Pain Medical Decision Making Patient is a 57-year-old male comes to the ED with abdominal pain. Abdominal pain started yesterday evening at about 7:00. He says he ate some dinner and about an hour or 2 later he started having the pain. Pain was rated an 8 out of 10. Denies any nausea or vomiting or fevers. Vitals are stable. Patient appears a little bit uncomfortable due to abdominal pain. He had moderate to severe tenderness to light palpation of upper abdomen bilaterally. CBC is unremarkable. Lipase 375 and total bili was 1.6. Rest of labs were unremarkable. CT of abdomen pelvis shows acute diverticulitis that is causing some inflammation around the pancreas. Patient was given IV pain meds and nausea meds. His pain was controlled but then we did a p.o. fluid challenge and after that his abdominal pain worsened again. I talked with Dr. Doherty about patient case Chart reviewed and patient discussed with midlevel. Agree with assessment and plan. Lab Data 01/13/23 09:48 01/13/23 09:48 Labs/Radiology: Radiology Impressions Abdomen/Pelvis CT 01/13/23 10:00 IMPRESSION: 1. Acute inflammatory process centered in the LEFT abdomen with involvement of the splenic flexure and proximal descending colon, pancreatic tail and fundus of the stomach. Favor these changes are originating from acute diverticulitis. Focal inflamed diverticula involving the descending colon and also an area of stricture which will need to be further evaluated for possible underlying neoplasm. Recommend colonoscopy after acute inflammation resolves. There is no abscess. 2. Additional sigmoid diverticulosis without acute diverticulitis. 3. No renal obstruction. 4. Normal appendix. Chest X-Ray 01/13/23 10:00 IMPRESSION: 1. No acute cardiopulmonary finding. Laboratory Results WBC 9.5 10^3/uL (4.0-10.0) 01/13/23 09:48 RBC 5.97 10^6/uL (4.1-5.3) H 01/13/23 09:48 Hgb 16.3 g/dL (11.7-16.6) 01/13/23 09:48 Hct 50.6 % (42.0-52.0) 01/13/23 09:48 MCV 84.8 fl (80-94) 01/13/23 09:48 MCH 27.3 pg (28.0-34.0) L 01/13/23 09:48 MCHC 32.2 g/dL (30.0-36.0) 01/13/23 09:48 RDW 13.8 % (12.1-15.1) 01/13/23 09:48 Plt Count 202 10^3/cmm (130-400) 01/13/23 09:48 MPV 9.5 fL (7.4-10.4) 01/13/23 09:48 Neut % (Auto) 85.6 % 01/13/23 09:48 Lymph % (Auto) 8.4 % 01/13/23 09:48 [place] % (Auto) 5.5 % 01/13/23 09:48 Eos % (Auto) 0.1 % 01/13/23 09:48 Baso % (Auto) 0.1 % 01/13/23 09:48 Neut # (Auto) 8.16 10^3/uL (1.8-7.7) H 01/13/23 09:48 Lymph # (Auto) 0.8 10^3/uL (0.8-4.8) 01/13/23 09:48 [place] # (Auto) 0.5 10^3/uL (0.2-0.9) 01/13/23 09:48 Eos # (Auto) 0.0 10^3/uL (0.0-0.8) 01/13/23 09:48 Baso # (Auto) 0.0 10^3/uL (0.0-0.1) 01/13/23 09:48 Nucleated RBC % (auto) 0 % 01/13/23 09:48 Nucleated RBCs # 0.0 /100WBC 01/13/23 09:48 Sodium 140 mmol/L (136-145) 01/13/23 09:48 Potassium 4.3 mmol/L (3.5-5.1) 01/13/23 09:48 Chloride 101 mmol/L (98-107) 01/13/23 09:48 Carbon Dioxide 27 mmol/L (22-29) 01/13/23 09:48 Anion Gap 16.3 (5-19) 01/13/23 09:48 BUN 14 mg/dL (6-20) 01/13/23 09:48 Creatinine 0.7 mg/dL (0.7-1.2) 01/13/23 09:48 GFR Calculation 115.4 mL/min (90-130) 01/13/23 09:48 Glucose 167 mg/dL (65-115) H 01/13/23 09:48 Calculated Osmolality 294 mOsm/kg (285-295) 01/13/23 09:48 Calcium 10.7 mg/dL (8.5-10.5) H 01/13/23 09:48 Total Bilirubin 1.6 mg/dL (0.15-1.2) H 01/13/23 09:48 AST 17 U/L (0-40) 01/13/23 09:48 ALT 24 U/L (0-41) 01/13/23 09:48 Alkaline Phosphatase 37 U/L (40-130) L 01/13/23 09:48 Troponin T Baseline 6 ng/L (0-15) 01/13/23 09:48 Troponin T 120 Minute 7.29 ng/L (0-15) 01/13/23 12:14 Delta Troponin T 1.29 ABS# (0-10) 01/13/23 12:14 Total Protein 7.5 g/dL (6.6-8.7) 01/13/23 09:48 Albumin 4.6 g/dL (3.5-5.2) 01/13/23 09:48 Globulin 2.9 g/dL (1.3-4.6) 01/13/23 09:48 Lipase 375 U/L (13-60) H 01/13/23 09:48 Urine Color Yellow (Yellow) 01/13/23 10:15 Urine Appearance Clear (CLEAR) 01/13/23 10:15 Urine pH 5 (5-7) 01/13/23 10:15 Ur Specific [place] 1.025 (1.005-1.030) 01/13/23 10:15 Urine Protein Neg (Negative) 01/13/23 10:15 Urine Glucose (UA) 4+ (Normal) H 01/13/23 10:15 Urine Ketones Negative (Negative) 01/13/23 10:15 Urine Blood Neg (Negative) 01/13/23 10:15 Urine Nitrate Negative (Negative) 01/13/23 10:15 Urine Bilirubin Neg (Negative) 01/13/23 10:15 Urine Urobilinogen Norm mg/dL (Negative) 01/13/23 10:15 Ur Leukocyte Esterase Negative (Negative) 01/13/23 10:15 Discharge Plan Discharge Patient Disposition: Admitted As Inpatient Admit Provider: Eitan Campos Clinical Impression: Acute diverticulitis, Hypertension, Morbid obesity with BMI of 40.0-44.9, adult, Diabetes, Diverticula of colon Condition: Stable Coding Level of Care Code ED Negative Restorer for Frank Young
[2023-01-13] MEDS: ondansetron 2 mg/ML SDV 2 mL 4 MG IVP (10:07)
[2023-01-13] MEDS: morphine 4 mg/mL SDV 1 mL IVP (10:07)
[2023-01-13 10:16] LABS: Basophils % 0.1 %; Eosinophils % 0.1 %; Hematocrit 50.6 % (42.0-52.0); Hemoglobin 16.3 g/dL (11.7-16.6); Lymphocytes # 0.8 10^3/uL (0.8-4.8); Lymphocytes % 8.4 %; Mean Corpuscular HGB Conc 32.2 g/dL (30.0-36.0); Mean Corpuscular Hemoglobin 27.3 pg (28.0-34.0); Mean Corpuscular Volume 84.8 fl (80-94); Mean Platelet Volume 9.5 fL (7.4-10.4); Monocytes # 0.5 10^3/uL (0.2-0.9); Monocytes % 5.5 %; Neutrophils # 8.16 10^3/uL (1.8-7.7); Neutrophils % 85.6 %; Nucleated Red Blood Cells % 0 %; Platelet Count 202 10^3/cmm (130-400); Red Blood Count 5.97 10^6/uL (4.1-5.3); Red Cell Distribution Width 13.8 % (12.1-15.1); White Blood Count 9.5 10^3/uL (4.0-10.0)
[2023-01-13 10:26] LABS: Add Urine Microscopic? NO; Charge for UA Resulting for Rev
[2023-01-13 10:33] LABS: Bilirubin Urine Neg (Negative); Blood Urine Neg (Negative); Glucose Urine UA 4+ (Normal); Ketones Urine Negative (Negative); Leukocyte Esterase Urine Negative (Negative); Nitrate Urine Negative (Negative); Protein Urine Neg (Negative); Specific Gravity, Urine 1.025 (1.005-1.030); Urine Appearance Clear (CLEAR); Urine Color Yellow (Yellow); Urobilinogen Urine Norm (Negative); pH Urine 5 (5-7)
[2023-01-13] MEDS: iohexol 350 mg/mL 500 mL Btl (per mL) IV (10:37)
[2023-01-13 10:45] LABS: Troponin(5th) Baseline 6 ng/L (0-15)
[2023-01-13 10:47] LABS: Alanine Aminotransferase 24 U/L (0-41); Albumin Level 4.6 g/dL (3.5-5.2); Alkaline Phosphatase 37 U/L (40-130); Anion Gap 16.3 (5-19); Aspartate Amino Transferase 17 U/L (0-40); Blood Urea Nitrogen 14 mg/dL (6-20); Calcium 10.7 mg/dL (8.5-10.5); Carbon Dioxide 27 mmol/L (22-29); Chloride 101 mmol/L (98-107); Globulin 2.9 g/dL (1.3-4.6); Glomerular Filtration Rate 115.4 mL/min (90-130); Glucose 167 mg/dL (65-115); Osmolality Calculated 294 mOsm/kg (285-295); Potassium 4.3 mmol/L (3.5-5.1); Sodium 140 mmol/L (136-145); Total Bilirubin 1.6 mg/dL (0.15-1.2); Total Protein 7.5 g/dL (6.6-8.7)
[2023-01-13 10:57] LABS: Lipase 375 U/L (13-60)
--- NOTE | 2023-01-13 12:00 | ECG_ITS ---
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 Measurements Intervals [place] Rate: 92 P: 59 AL: 164 QRS: -48 QRSD: 98 T: 35 QT: 341 QTc: 423 Interpretive Statements SINUS RHYTHM INDETERMINATE AXIS No previous ECG available for comparison Electronically Signed On 01-13-2023 12:31:19 CDT by Loida Osei M.D. [id number]
[2023-01-13 12:44] LABS: Troponin 5 2HR 7.29 ng/L (0-15)
[2023-01-13 12:58] LABS: Troponin 5 2HR Delta 1.29 ABS# (0-10)
[2023-01-13] MEDS: HYDROmorphone 1 mg/mL INJ 1 mL 0.5 MG IVP (13:02)
[2023-01-13] MEDS: ciprofloxacin 400 MG/200 ML PREMIX 200 MG IV (13:04)
[2023-01-13] MEDS: metroNIDAZOLE IV 500 MG/100 ML PREMIX 100 MG IV (13:05)
[2023-01-13] MEDS: sodium chloride 0.9% 1,000 ML 999 ML IV (13:05)
--- NOTE | 2023-01-13 14:21 | P.HP_ITS ---
Providers/Chief Complaint Admitting Physician: Eitan Campos MD Primary Care Provider: FLAQUITA Tilley Chief Complaint: abd pain History of Present Illness Cj Larose is a 57 year old male with past medical history of hypertension diabetes, came in today with chief complaint of acute onset of abdominal pain started last night, symptoms started approximately after an hour, he had finished eating his dinner, pain was predominantly located in epigastric region, patient tried taking Tums last night, but had no relief, he was not able to rest all night because of pain,denies any nausea vomiting, sick contact, eating anything unusual, has prior history of diverticulitis. CT abdomen and pelvis showed: Acute inflammatory process centered in the LEFT abdomen with involvement of the splenic flexure and proximal descending colon, pancreatic tail and fundus of the stomach. Favor these changes are originating from acute diverticulitis. Focal inflamed diverticula involving the descending colon and also an area of stricture which will need to be further evaluated for possible underlying neoplasm. Recommend colonoscopy after acute inflammation resolves. There is no abscess. Pertinent labs : WBC 9.5, H&H 16/50 ,PLT : 202 , serum sodium 140, serum potassium 4.3, BUN 14, serum creatinine 0.7, lipase:375 His vitals have been reviewed. Patient was given metronidazole and ciprofloxacin in ER. Review of Systems General: Reports: 10 or more systems reviewed and unremarkable except in HPI and below Const: Denies: fever(s), chills, body aches, change in appetite or diaphoresis Card: Denies: palpitations, edema, swelling of feet/ankles, dyspnea on exertion, orthopnea or leg pain with exertion Resp: Denies: dyspnea, productive cough, wheezing or pain on inspiration GI: Reports: abdominal pain; Denies: nausea, vomiting, diarrhea or constipation : Denies: flank pain or difficulty urinating Musc: Denies: back pain, extremity pain or extremity swelling Neuro: Denies: headache(s), difficulty walking or confusion Medications/Allergies Home Medications Medication Instructions Recorded Confirmed Last Taken Type ibuprofen 200 mg tablet (Advil) 400 - 600 mg PO Q6H PRN Pain 12/24/19 01/13/23 12/24/19 History CPAP #1 ea 04/05/22 01/13/23 Unknown Rx metformin 500 mg tablet 500 mg PO BID 90 days #180 tabs 05/06/1801/13/23 01/13/23 07:30 Rx dapagliflozin 10 mg tablet 10 mg PO QAM 01/13/23 01/13/23 01/13/23 07:30 History ([facility]) fenofibrate 160 mg tablet 160 mg PO QAM 01/13/23 01/13/23 01/13/23 07:30 History lisinopril 20 mg tablet 20 mg PO QAM 01/13/23 01/13/23 01/13/23 07:30 History rosuvastatin 40 mg tablet 40 mg PO QAM 01/13/23 01/13/23 01/13/23 07:30 History Allergies Allergy/AdvReac Type Severity Reaction Status Date / Time No Known Allergies Allergy Verified 01/13/23 13:15 PFSH Acute 2 PFSH: Medical History Hyperlipidemia associated with type 2 diabetes mellitus Hypertension Morbid obesity with BMI of 40.0-44.9, adult Type 2 diabetes mellitus with hemoglobin A1c goal of less than 7.0% Family History Father , AT AGE 57 GUNSHOT CAD (coronary artery disease) Cancer Mother , AT AGE 72 CONGESTIVE HEART FAILRE CAD (coronary artery disease) Other Diabetes Social History Smoking and tobacco status: current every day smoker cigars and smokeless to bacco Alcohol intake: never Substance/Drug Use: never Adopted: No Caregiver/support person: No Lives independently: No Household members: spouse Marital status: Current occupational status: employed Sexually active: Yes Do you think of yourself as: Straight/Heterosexual Current gender identity: Male Vitals/I&O/Wt Last Vital Signs Temp 98.0 F 01/13/23 09:23 Pulse 70 01/13/23 09:23 Resp 18 01/13/23 10:07 BP 154/83 01/13/23 09:23 Pulse Ox 97 01/13/23 09:23 O2 Del Method Room Air 01/13/23 09:23 Weight last 48 hrs Weight 108.862 kg Physical Exam Const: COMMON NORMALS: patient oriented x3 HENMT: COMMON NORMALS: normocephalic and atraumatic HEAD & SCALP: normocephalic and atraumatic Resp: COMMON NORMALS: clear to auscultation bilaterally AUSCULTATION: clear to auscultation bilaterally Cardio: COMMON NORMALS: regular rate, regular rhythm, S1 normal heart sound present, S2 normal heart sound present, No gallops present (Cardio), No murmurs present (Cardio), No rub (Cardio) and Peripheral pulses 2+ throughout RATE: regular rate RHYTHM: regular rhythm HEART SOUNDS: S1 normal heart sound present and S2 normal heart sound present PERIPHERAL PULSES: Peripheral pulses 2+ throughout GI: AUSCULTATION: Yes normoactive bowel sounds RECTAL EXAM: Yes deferred OTHER: Left upper and left lower quadrant abdominal tenderness, minimal guarding, no rigidity no rebound tenderness. Extremity: COMMON NORMALS: no clubbing, cyanosis or edema and no pedal edema Data 01/13/23 09:48 01/13/23 09:48 A&P Assessment and plan (1) Acute diverticulitis: (2) Hypertension: (3) Diabetes: Plan 57 year old male with past medical history of hypertension diabetes, came in today with chief complaint of acute onset of abdominal pain started last night, symptoms started approximately after an hour, he had finished eating his dinner, pain was predominantly located in epigastric region, patient tried taking Tums last night, but had no relief, he was not able to rest all night because of pain,denies any nausea vomiting, sick contact, eating anything unusual, has prior history of diverticulitis. Assessment: Acute diverticulitis: CT abdomen and pelvis showed: Acute inflammatory process centered in the LEFT abdomen with involvement of the splenic flexure and proximal descending colon, pancreatic tail and fundus of the stomach. Favor these changes are originating from acute diverticulitis. Focal inflamed diverticula involving the descending colon and also an area of stricture which will need to be further evaluated for possible underlying neoplasm. Recommend colonoscopy after acute inflammation resolves. There is no abscess. Currently on clear liquid diet Pain control Empirically on Zosyn Patient will need outpatient colonoscopy in 6 to 8-week, to rule possible underlying neoplasm Continue IV fluids History of diabetes: SSI, monitor fingerstick glucose History of hypertension: Continue lisinopril CODE STATUS: Full code DVT prophylaxis on Lovenox Attestations Medical Necessity Statement*: Needs to be in hospital for management of acute diverticulitis. Need for IV antibiotics. Anticipated length of stay greater than 2 midnights Coding Level of Care Code Acute Code for Chg Fwd Diagnoses Acute diverticulitis K57.92 Hypertension I10 Diabetes E11.9
[2023-01-13] MEDS: enoxaparin 40 mg/0.4 mL Syringe SUBCUT (15:14)
[2023-01-13] MEDS: sodium chloride 0.9% 1,000 ML 100 ML IV (15:15)
--- NOTE | 2023-01-13 16:00 | ECG_ITS ---
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 Measurements Intervals [place] Rate: P: 0 [place]: 0 QRS: 0 QRSD: 0 T: 0 QT: 0 QTc: 0 Interpretive Statements NO FURTHER INTERPRETATION POSSIBLE ATYPICAL ECG WARNING: DATA QUALITY MAY AFFECT INTERPRETATION Compared to ECG 01/13/2023 13:37:02 Indeterminate axis no longer present Electronically Signed On 01-17-2023 21:38:24 CDT by Loida Osei M.D. [email or web address]
[2023-01-13 16:54] LABS: Troponin 5 6HR 8.13 ng/L (0-15)
[2023-01-13 17:07] LABS: Troponin 5 6HR Delta 2.13 ng/L (0-12)
[2023-01-13 17:15] LABS: Glucose Point of Care 125 mg/dL (70-110)
[2023-01-13] MEDS: piperacillin-tazobactam 3.375 GM in sodium chloride 0.9% (plus) 50 ML IV ×2 (17:52→23:52)
[2023-01-13] MEDS: morphine 4 mg/mL SDV 1 mL 2 MG IVP (17:52)
[2023-01-13] MEDS: oxyCODONE 5 mg IR Tab/Cap PO (20:06)
[2023-01-13 21:03] LABS: Glucose Point of Care 147 mg/dL (70-110)
[2023-01-14] VITALS (14 sets, daily range): BP systolic 93–127; BP diastolic 54–79; PULSE 100–108; RESP 14–18; TEMP 36.5–37.4; O2SAT 90–93
[2023-01-14] MEDS: sodium chloride 0.9% 1,000 ML 100 ML IV ×3 (02:20→22:12)
[2023-01-14] MEDS: oxyCODONE 5 mg IR Tab/Cap PO ×4 (02:23→21:46)
[2023-01-14 05:05] LABS: Basophils % 0.1 %; Hematocrit 43.7 % (42.0-52.0); Hemoglobin 13.9 g/dL (11.7-16.6); Lymphocytes % 8.3 %; Mean Corpuscular HGB Conc 31.8 g/dL (30.0-36.0); Mean Corpuscular Hemoglobin 27.5 pg (28.0-34.0); Mean Corpuscular Volume 86.5 fl (80-94); Mean Platelet Volume 9.2 fL (7.4-10.4); Monocytes # 1.1 10^3/uL (0.2-0.9); Monocytes % 9.1 %; Neutrophils # 9.47 10^3/uL (1.8-7.7); Neutrophils % 82.2 %; Nucleated Red Blood Cells % 0 %; Platelet Count 160 10^3/cmm (130-400); Red Blood Count 5.05 10^6/uL (4.1-5.3); Red Cell Distribution Width 14.3 % (12.1-15.1); White Blood Count 11.5 10^3/uL (4.0-10.0)
[2023-01-14 05:31] LABS: Alanine Aminotransferase 14 U/L (0-41); Albumin Level 3.5 g/dL (3.5-5.2); Alkaline Phosphatase 26 U/L (40-130); Anion Gap 13.9 (5-19); Aspartate Amino Transferase 10 U/L (0-40); Blood Urea Nitrogen 15 mg/dL (6-20); Calcium 8.8 mg/dL (8.5-10.5); Carbon Dioxide 25 mmol/L (22-29); Chloride 105 mmol/L (98-107); Globulin 2.2 g/dL (1.3-4.6); Glomerular Filtration Rate 86.4 mL/min (90-130); Glucose 137 mg/dL (65-115); Magnesium 1.6 mg/dL (1.7-2.3); Osmolality Calculated 293 mOsm/kg (285-295); Potassium 3.9 mmol/L (3.5-5.1); Sodium 140 mmol/L (136-145); Total Bilirubin 2.1 mg/dL (0.15-1.2); Total Protein 5.7 g/dL (6.6-8.7)
[2023-01-14 05:32] LABS: Cholesterol 119 mg/dL (0-200); HDL Cholesterol 44 mg/dL (60-100); LDL Cholesterol Calculated 49 mg/dL (50-129); LDL HDL Ratio 1.11 RATIO (0.00-3.22); Triglycerides 131 mg/dL (0-150)
[2023-01-14] MEDS: fenofibrate 145 mg Tablet PO (06:09)
[2023-01-14] MEDS: atorvastatin 40 mg Tablet 80 MG PO (06:09)
[2023-01-14] MEDS: lisinopril 20 mg Tablet PO (06:09)
[2023-01-14 06:54] LABS: Glucose Point of Care 147 mg/dL (70-110)
[2023-01-14] MEDS: piperacillin-tazobactam 3.375 GM in sodium chloride 0.9% (plus) 50 ML IV ×2 (08:57→16:36)
[2023-01-14] MEDS: insulin lispro 100 unit/1 mL SUBCUT (08:57)
[2023-01-14] MEDS: morphine 4 mg/mL SDV 1 mL 2 MG IVP (10:13)
[2023-01-14 11:32] LABS: Glucose Point of Care 120 mg/dL (70-110)
[2023-01-14] MEDS: enoxaparin 40 mg/0.4 mL Syringe SUBCUT (13:40)
[2023-01-14] MEDS: HYDROmorphone 1 mg/mL INJ 1 mL 0.5 MG IVP (13:45)
[2023-01-14 17:10] LABS: Glucose Point of Care 124 mg/dL (70-110)
--- NOTE | 2023-01-14 18:28 | PM.PN ---
Subjective Subjective: Patient was seen and examined this morning, states that had significant abdominal discomfort overnight. Currently he is tolerating clear liquid diet well wants his diet to be advanced. Medications: Medication Review Details: Generic Name Dose Route Start Last Admin Trade Name Freq PRN Reason Stop Dose Admin Atorvastatin Calci um 80 mg 01/14/23 06:00 01/14/23 06:09 Atorvastatin 40 Mg Tablet PO 80 mg QAM RAISSA Administration Enoxaparin Sodium 40 mg 01/13/23 14:15 01/14/23 13:40 Enoxaparin 40 Mg /0.4 Ml Syringe SUBCUT 40 mg Q24H RAISSA Administration Fenofibrate 145 mg 01/14/23 06:00 01/14/23 06:09 Fenofibrate 145 Mg Tablet PO 145 mg QAM RAISSA Administration Hydromorphone HCl 0.5 mg 01/14/23 09:55 01/14/23 13:45 Hydromorphone 1 Mg/Ml Inj 1 Ml IVP 0.5 mg Q4H PRN Administration PAIN Sodium Chloride 1,000 mls @ 100 m ls/hr 01/13/23 14:15 01/14/23 12:07 Sodium Chloride 0.9% IV 100 mls/hr .Q10H RAISSA Administration Piperacillin Sod/T azobactam 50 mls @ 12.5 mls /hr 01/13/23 16:00 01/14/23 16:36 Sod 3.375 gm/ So dium Chloride IV 12.5 mls/hr Q8H RAISSA Administration Protocol Insulin Human Lisp ro 0 unit 01/13/23 18:00 01/14/23 17:12 Insulin Lispro 1 00 Unit/1 Ml SUBCUT Not Given TIDWM [facility] Protocol Lisinopril 20 mg 01/14/23 06:00 01/14/23 06:09 Lisinopril 20 Mg Tablet PO 20 mg QAM RAISSA Administration Morphine Sulfate 2 mg 01/13/23 17:47 01/14/23 10:13 Morphine 4 Mg/Ml Sdv 1 Ml IVP 2 mg Q4H PRN Administration SEVERE PAIN Oxycodone HCl 5 mg 01/14/23 09:57 01/14/23 16:36 Oxycodone 5 Mg I r Tab/Cap PO 5 mg Q4H PRN Administration MODERATE PAIN Vitals/I&O/Wt Last Vital Signs Temp 98.3 F 01/14/23 16:00 Pulse 107 H 01/14/23 16:00 Resp 17 01/14/23 16:36 BP 118/73 01/14/23 16:00 Pulse Ox 90 01/14/23 16:00 O2 Del Method Room Air 01/14/23 16:00 01/14/23 01/14/23 01/14/23 06:59 14:59 22:59 Intake Total 1050 / 2400 1560.333 / 1560.333 240 / 1800.333 Balance 1050 / 2400 1560.333 / 1560.333 240 / 1800.333 Weight last 48 hrs Weight 108.862 kg Physical Exam Const: COMMON NORMALS: patient oriented x3 HENMT: COMMON NORMALS: normocephalic and atraumatic HEAD & SCALP: normocephalic and atraumatic Resp: COMMON NORMALS: clear to auscultation bilaterally AUSCULTATION: clear to auscultation bilaterally Cardio: COMMON NORMALS: regular rate, regular rhythm, S1 normal heart sound present, S2 normal heart sound present, No gallops present (Cardio), No murmurs present (Cardio), No rub (Cardio) and Peripheral pulses 2+ throughout RATE: regular rate RHYTHM: regular rhythm HEART SOUNDS: S1 normal heart sound present and S2 normal heart sound present PERIPHERAL PULSES: Peripheral pulses 2+ throughout GI: AUSCULTATION: Yes normoactive bowel sounds RECTAL EXAM: Yes deferred OTHER: Left upper and left lower quadrant abdominal tenderness, minimal guarding, no rigidity no rebound tenderness. Extremity: COMMON NORMALS: no clubbing, cyanosis or edema and no pedal edema Neuro: COMMON NORMALS: patient oriented x3 Data 01/14/23 04:46 01/14/23 04:46 A&P Assessment and plan (1) Acute diverticulitis: (2) Hypertension: (3) Diabetes: Plan 57 year old male with past medical history of hypertension diabetes, came in today with chief complaint of acute onset of abdominal pain started last night, symptoms started approximately after an hour, he had finished eating his dinner, pain was predominantly located in epigastric region, patient tried taking Tums last night, but had no relief, he was not able to rest all night because of pain,denies any nausea vomiting, sick contact, eating anything unusual, has prior history of diverticulitis. Assessment: Acute diverticulitis: CT abdomen and pelvis showed: Acute inflammatory process centered in the LEFT abdomen with involvement of the splenic flexure and proximal descending colon, pancreatic tail and fundus of the stomach. Favor these changes are originating from acute diverticulitis. Focal inflamed diverticula involving the descending colon and also an area of stricture which will need to be further evaluated for possible underlying neoplasm. Recommend colonoscopy after acute inflammation resolves. There is no abscess. Currently on clear liquid diet Pain control Empirically on Zosyn Patient will need outpatient colonoscopy in 6 to 8-week, to rule possible underlying neoplasm Continue IV fluids History of diabetes: SSI, monitor fingerstick glucose History of hypertension: Continue lisinopril CODE STATUS: Full code DVT prophylaxis on Lovenox Attestations Medical Necessity Statement*: Needs to be in hospital for IV antibiotics. Coding Level of Care Code Acute Code for [facility] Diagnoses Acute diverticulitis K57.92 Hypertension I10 Diabetes E11.9
[2023-01-14 21:21] LABS: Glucose Point of Care 130 mg/dL (70-110)
[2023-01-15] VITALS: BP 118/70; PULSE 102; RESP 17; TEMP 37.2; O2SAT 93
[2023-01-15] MEDS: piperacillin-tazobactam 3.375 GM in sodium chloride 0.9% (plus) 50 ML IV ×2 (00:49→08:49)
[2023-01-15 04:00] VITALS: BP 127/80; PULSE 93; RESP 17; TEMP 37.7; O2SAT 96
[2023-01-15 04:50] VITALS: RESP 16; O2SAT 96
[2023-01-15] MEDS: oxyCODONE 5 mg IR Tab/Cap PO (04:50)
[2023-01-15] MEDS: fenofibrate 145 mg Tablet PO (05:27)
[2023-01-15] MEDS: atorvastatin 40 mg Tablet 80 MG PO (05:27)
[2023-01-15] MEDS: lisinopril 20 mg Tablet PO (05:28)
[2023-01-15 05:31] LABS: Basophils % 0.2 %; Eosinophils % 0.3 %; Hematocrit 41.3 % (42.0-52.0); Hemoglobin 13.3 g/dL (11.7-16.6); Lymphocytes % 10.1 %; Mean Corpuscular HGB Conc 32.2 g/dL (30.0-36.0); Mean Corpuscular Hemoglobin 28.1 pg (28.0-34.0); Mean Corpuscular Volume 87.3 fl (80-94); Mean Platelet Volume 9.4 fL (7.4-10.4); Monocytes # 0.8 10^3/uL (0.2-0.9); Monocytes % 7.8 %; Neutrophils # 8.23 10^3/uL (1.8-7.7); Neutrophils % 81.4 %; Nucleated Red Blood Cells % 0 %; Platelet Count 140 10^3/cmm (130-400); Red Blood Count 4.73 10^6/uL (4.1-5.3); Red Cell Distribution Width 14.2 % (12.1-15.1); White Blood Count 10.1 10^3/uL (4.0-10.0)
[2023-01-15 05:54] LABS: Alanine Aminotransferase 11 U/L (0-41); Albumin Level 3.5 g/dL (3.5-5.2); Alkaline Phosphatase 24 U/L (40-130); Anion Gap 13.9 (5-19); Aspartate Amino Transferase 9 U/L (0-40); Blood Urea Nitrogen 16 mg/dL (6-20); Calcium 8.1 mg/dL (8.5-10.5); Carbon Dioxide 25 mmol/L (22-29); Chloride 105 mmol/L (98-107); Globulin 2.2 g/dL (1.3-4.6); Glomerular Filtration Rate 86.4 mL/min (90-130); Glucose 119 mg/dL (65-115); Osmolality Calculated 292 mOsm/kg (285-295); Potassium 3.9 mmol/L (3.5-5.1); Sodium 140 mmol/L (136-145); Total Bilirubin 1.8 mg/dL (0.15-1.2); Total Protein 5.7 g/dL (6.6-8.7)
[2023-01-15 05:56] VITALS: PULSE 86
[2023-01-15 07:03] LABS: Glucose Point of Care 137 mg/dL (70-110)
--- NOTE | 2023-01-15 09:38 | PM.DCS ---
Discharge Providers Date of Admission: 01/13/23 13:00 Date of Discharge: January 15, 2023 Attending Provider at Admission: Eitan Campos MD Attending Provider at Discharge: Eitan Campos MD Primary Care Provider: FLAQUITA Tilley Diagnoses at Discharge Discharge Diagnosis (1) Acute diverticulitis: Status: Acute (2) Hypertension: Status: Acute (3) Diabetes: Status: Acute Reason for Visit Reason for Visit: abd pain Hospital Course Hospital Course 57 year old male with past medical history of hypertension diabetes, came in today with chief complaint of acute onset of abdominal pain started on the night prior to the admission, CT abdomen pelvis done during hospital stay showed Acute inflammatory process centered in the LEFT abdomen with involvement of the splenic flexure and proximal descending colon, pancreatic tail and fundus of the stomach. Favor these changes are originating from acute diverticulitis. Focal inflamed diverticula involving the descending colon and also an area of stricture which will need to be further evaluated for possible underlying neoplasm. Recommend colonoscopy after acute inflammation resolves. There is no abscess.Additional sigmoid diverticulosis without acute diverticulitis.No renal obstruction. He was admitted for the management of acute diverticulitis: Initially kept n.p.o. pain control IV fluids, on Zosyn, later with improvement in his pain, diet was advanced, he was tolerating GI soft diet, at the time of discharge, denied any nausea vomiting, pain was better controlled. He was also managed for likely acute pancreatitis as his serum lipase was also elevated, Patient was also having epigastric abdominal, CT abdomen and pelvis was showing inflammation of the pancreatic tail. Patient overall responded well to above medical management, he was discharged on oral metronidazole and ciprofloxacin for additional 10 days for his diverticulitis, he has been asked to, schedule a colonoscopy in 6 to 8 weeks, after the acute diverticulitis has completely resolved, rule out any other possible, underlying neoplasm. Overall patient responded well to above medical management and was discharged stable condition to home. Physical Exam Const: COMMON NORMALS: patient oriented x3 HENMT: COMMON NORMALS: normocephalic and atraumatic HEAD & SCALP: normocephalic and atraumatic Resp: COMMON NORMALS: clear to auscultation bilaterally AUSCULTATION: clear to auscultation bilaterally Cardio: COMMON NORMALS: regular rate, regular rhythm, S1 normal heart sound present, S2 normal heart sound present, No gallops present (Cardio), No murmurs present (Cardio), No rub (Cardio) and Peripheral pulses 2+ throughout RATE: regular rate RHYTHM: regular rhythm HEART SOUNDS: S1 normal heart sound present and S2 normal heart sound present PERIPHERAL PULSES: Peripheral pulses 2+ throughout GI: AUSCULTATION: Yes normoactive bowel sounds RECTAL EXAM: Yes deferred OTHER: Left upper and left lower quadrant abdominal tenderness, minimal guarding, no rigidity no rebound tenderness. Extremity: COMMON NORMALS: no clubbing, cyanosis or edema and no pedal edema Neuro: COMMON NORMALS: patient oriented x3 Discharge Data Studies Completed and Pending Completed Studies During Hospitalization Category Date Time Status CT abdomen pelvis w con* [id number] Stat Cat Scan 01/13/23 10:00 Completed XR chest 1V portable [id number] Stat Exams 01/13/23 10:00 Completed Pending at discharge Category Date Time Status Complete Blood Count w/Auto AM LABS Lab 01/16/23 04:00 Ordered Comprehensive Metabolic Panel AM LABS Lab 01/16/23 04:00 Ordered Radiology Impressions Abdomen/Pelvis CT 01/13/23 10:00 IMPRESSION: 1. Acute inflammatory process centered in the LEFT abdomen with involvement of the splenic flexure and proximal descending colon, pancreatic tail and fundus of the stomach. Favor these changes are originating from acute diverticulitis. Focal inflamed diverticula involving the descending colon and also an area of stricture which will need to be further evaluated for possible underlying neoplasm. Recommend colonoscopy after acute inflammation resolves. There is no abscess. 2. Additional sigmoid diverticulosis without acute diverticulitis. 3. No renal obstruction. 4. Normal appendix. Chest X-Ray 01/13/23 10:00 IMPRESSION: 1. No acute cardiopulmonary finding. Laboratory Results WBC 10.1 10^3/uL (4.0-10.0) H 01/15/23 05:14 RBC 4.73 10^6/uL (4.1-5.3) 01/15/23 05:14 Hgb 13.3 g/dL (11.7-16.6) 01/15/23 05:14 Hct 41.3 % (42.0-52.0) L 01/15/23 05:14 MCV 87.3 fl (80-94) 01/15/23 05:14 MCH 28.1 pg (28.0-34.0) 01/15/23 05:14 MCHC 32.2 g/dL (30.0-36.0) 01/15/23 05:14 RDW 14.2 % (12.1-15.1) 01/15/23 05:14 Plt Count 140 10^3/cmm (130-400) 01/15/23 05:14 MPV 9.4 fL (7.4-10.4) 01/15/23 05:14 Neut % (Auto) 81.4 % 01/15/23 05:14 Lymph % (Auto) 10.1 % 01/15/23 05:14 [place] % (Auto) 7.8 % 01/15/23 05:14 Eos % (Auto) 0.3 % 01/15/23 05:14 Baso % (Auto) 0.2 % 01/15/23 05:14 Neut # (Auto) 8.23 10^3/uL (1.8-7.7) H 01/15/23 05:14 Lymph # (Auto) 1.0 10^3/uL (0.8-4.8) 01/15/23 05:14 [place] # (Auto) 0.8 10^3/uL (0.2-0.9) 01/15/23 05:14 Eos # (Auto) 0.0 10^3/uL (0.0-0.8) 01/15/23 05:14 Baso # (Auto) 0.0 10^3/uL (0.0-0.1) 01/15/23 05:14 Nucleated RBC % (auto) 0 % 01/15/23 05:14 Nucleated RBCs # 0.0 /100WBC 01/15/23 05:14 Sodium 140 mmol/L (136-145) 01/15/23 05:14 Potassium 3.9 mmol/L (3.5-5.1) 01/15/23 05:14 Chloride 105 mmol/L (98-107) 01/15/23 05:14 Carbon Dioxide 25 mmol/L (22-29) 01/15/23 05:14 Anion Gap 13.9 (5-19) 01/15/23 05:14 BUN 16 mg/dL (6-20) 01/15/23 05:14 Creatinine 0.9 mg/dL (0.7-1.2) 01/15/23 05:14 GFR Calculation 86.4 mL/min (90-130) L 01/15/23 05:14 Glucose 119 mg/dL (65-115) H 01/15/23 05:14 POC Glucose 137 mg/dL (70-110) H 01/15/23 06:55 Calculated Osmolality 292 mOsm/kg (285-295) 01/15/23 05:14 Calcium 8.1 mg/dL (8.5-10.5) L 01/15/23 05:14 Phosphorus 3.0 mg/dL (2.5-4.5) 01/14/23 04:46 Magnesium 1.6 mg/dL (1.7-2.3) L 01/14/23 04:46 Total Bilirubin 1.8 mg/dL (0.15-1.2) H 01/15/23 05:14 AST 9 U/L (0-40) 01/15/23 05:14 ALT 11 U/L (0-41) 01/15/23 05:14 Alkaline Phosphatase 24 U/L (40-130) L 01/15/23 05:14 Troponin T Baseline 6 ng/L (0-15) 01/13/23 09:48 Troponin T 120 Minute 7.29 ng/L (0-15) 01/13/23 12:14 Delta Troponin T 1.29 ABS# (0-10) 01/13/23 12:14 Troponin T Hi Sens 6Hr 8.13 ng/L (0-15) 01/13/23 16:15 Troponin T Hi Sens 6Hr Delta 2.13 ng/L (0-12) 01/13/23 16:15 Total Protein 5.7 g/dL (6.6-8.7) L 01/15/23 05:14 Albumin 3.5 g/dL (3.5-5.2) 01/15/23 05:14 Globulin 2.2 g/dL (1.3-4.6) 01/15/23 05:14 Triglycerides 131 mg/dL (0-150) 01/14/23 04:46 Cholesterol 119 mg/dL (0-200) 01/14/23 04:46 LDL Cholesterol, Calc 49 mg/dL (50-129) L 01/14/23 04:46 HDL Cholesterol 44 mg/dL (60-100) L 01/14/23 04:46 LDL/HDL Ratio 1.11 RATIO (0.00-3.22) 01/14/23 04:46 Cholesterol/HDL Ratio 2.70 mg/dL (1.0-5.00) 01/14/23 04:46 Lipase 375 U/L (13-60) H 01/13/23 09:48 Urine Color Yellow (Yellow) 01/13/23 10:15 Urine Appearance Clear (CLEAR) 01/13/23 10:15 Urine pH 5 (5-7) 01/13/23 10:15 Ur Specific [place] 1.025 (1.005-1.030) 01/13/23 10:15 Urine Protein Neg (Negative) 01/13/23 10:15 Urine Glucose (UA) 4+ (Normal) H 01/13/23 10:15 Urine Ketones Negative (Negative) 01/13/23 10:15 Urine Blood Neg (Negative) 01/13/23 10:15 Urine Nitrate Negative (Negative) 01/13/23 10:15 Urine Bilirubin Neg (Negative) 01/13/23 10:15 Urine Urobilinogen Norm mg/dL (Negative) 01/13/23 10:15 Ur Leukocyte Esterase Negative (Negative) 01/13/23 10:15 Vitals Last Vital Signs Temp 99.9 F H 01/15/23 04:00 Pulse 86 01/15/23 05:56 Resp 16 01/15/23 04:50 BP 127/80 01/15/23 04:00 Pulse Ox 96 01/15/23 04:50 O2 Del Method Nasal Cannula 01/15/23 04:00 O2 Flow Rate 2 01/15/23 00:00 Discharge Plan Discharge Patient Disposition: Home Condition: Stable Prescriptions: New Cipro 500 mg tablet 500 mg PO BID 10 Days Qty: 20 0RF metronidazole 500 mg tablet 500 mg PO BID 10 Days Qty: 20 0RF oxycodone 5 mg tablet 5 mg PO BID PRN (Reason: pain) 3 Days Qty: 7 0RF Continued metformin 500 mg tablet 500 mg PO BID 90 Days Qty: 180 0RF (DME) CPAP See Rx Instructions .Route .MEDSUPPLY Qty: 1 0RF Rx Instructions: Needs new CPAP machine and supplies ibuprofen [Advil] 200 mg Tablet 400 - 600 mg PO Q6H PRN (Reason: Pain) lisinopril 20 mg tablet 20 mg PO QAM rosuvastatin 40 mg tablet 40 mg PO QAM fenofibrate 160 mg tablet 160 mg PO QAM Farxiga 10 mg tablet 10 mg PO QAM Discharge Orders: Discharge Order (Routine); Ordered 01/15/23 Ordered By: Eitan Campos Referrals: Jon Acuna DO [Physician] - 6 Weeks (Message sent to clinic.) Demetrio Langston FNP [Primary Care Provider] - (Message sent to clinic) Patient Instructions: Ciprofloxacin (By mouth) (Cipro), Metronidazole (By mouth) (Flagyl, Flagyl 375, Flagyl ER), Oxycodone, Slow Release (By mouth), Diverticulitis (DC), Opioid Safety Discharge Attestations Time Spent in Discharge Care*: less than 30 min Quality Metrics Clinical Quality Measures [ No reported AMI, CVA or VTE this stay] Coding Level of Care Code Acute Code for [facility] Diagnoses Acute diverticulitis K57.92 Hypertension I10 Diabetes E11.9
== END 2023-01-15 11:50 | disposition home or self-care (01) | DRG 391 ==
LOC: ER 12:59 → MEDSURG 13:37
PROVIDERS: Physician Assistant; Admitting Provider Internal Medicine; Emergency Provider Family Medicine; PCP Registered Nurse; Visit Provider Internal Medicine
DX: K57.32 Diverticulitis of large intestine without perforation or abscess without bleeding (principal); K85.90 Acute pancreatitis without necrosis or infection, unspecified; I10 Essential (primary) hypertension; E11.69 Type 2 diabetes mellitus with other specified complication; Z79.84 Long term (current) use of oral hypoglycemic drugs; E78.49 Other hyperlipidemia; E66.01 Morbid (severe) obesity due to excess calories; Z68.36 Body mass index [BMI] 36.0-36.9, adult; F17.210 Nicotine dependence, cigarettes, uncomplicated; F17.220 Nicotine dependence, chewing tobacco, uncomplicated
CPT/HCPCS: 36415; 36416; 71045; 74177; 80053; 80061; 81003; 82962; 83690; 83735; 84100; 84484; 85025; 93005; 96365; 96367; 96372; 96375; 99285; J0744; J1170; J1650; J1815; J2270; J2405; J2543; J3475; J3490; J7030; Q9967

== ENCOUNTER → 2023-01-25 16:23 | Outpatient (BNVA) | payer OTHER, SELFPAY | PROVIDERS: PCP Registered Nurse; Visit Provider Registered Nurse | DX: E11.9 Type 2 diabetes mellitus without complications (principal); Z09 Encounter for follow-up examination after completed treatment for conditions other than malignant neoplasm; K57.92 Diverticulitis of intestine, part unspecified, without perforation or abscess without bleeding | CPT/HCPCS: 83036 ==